=== PATIENT | female | born 2000 | race Caucasian/White ===

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

== ENCOUNTER 2021-10-03 20:17 | Observation (INO) | payer OTHER ==
[~2021-10-03] VITALS: Ht 157.5 cm; Wt 69.9 kg
[2021-10-03] MEDS ORDERED: PREN-182 PO (20:54)
[2021-10-03] MEDS ORDERED: FERR325T6 PO (20:54)
[2021-10-03] MEDS ORDERED: VIT1TABL62 PO (20:54)
== END 2021-10-03 22:00 | disposition home or self-care (01) ==
LOC: 8 EST LDRP 20:17
PROVIDERS: ADMIT Obstetrics & Gynecology; ATTEND Obstetrics & Gynecology
DX: O26.893 Other specified pregnancy related conditions, third trimester (principal); R10.9 Unspecified abdominal pain; R35.0 Frequency of micturition; O24.419 Gestational diabetes mellitus in pregnancy, unspecified control; O34.63 Maternal care for abnormality of vagina, third trimester; Z3A.38 38 weeks gestation of pregnancy
CPT/HCPCS: 59025; G0378; 99281; G0379